=== PATIENT | female | born 1970 | race Caucasian/White ===

== ENCOUNTER 2017-03-13 11:22 | Observation (INO) | payer BC ==
[2017-03-13] MEDS ORDERED: ONDANSETRON 4 MG/2 ML VIAL IVP STA (11:59)
[2017-03-13] MEDS ORDERED: SODIUM CHLORIDE 0.9% 1,000 ML IV STA ×2 (11:59)
[2017-03-13] MEDS ORDERED: HYDROmorphone 1 MG/ML 1 ML SYRINGE IVP STA ×2 (11:59→13:38)
--- NOTE | 2017-03-13 12:01 | ED ---
General Adult HPI <Dex Chawla - Last Filed: 03/13/17 13:41> - General Source: patient, RN notes reviewed Mode of arrival: ambulatory Limitations: no limitations <Arley Workman - Last Filed: 03/13/17 13:44> - General Chief complaint: Abdominal Pain Stated complaint: abdominal pain LRQ Time Seen by Provider: 03/13/17 11:37 - History of Present Illness Initial comments: Patient is a 46-year-old female who presents emergency room today with chief complaint of abdominal pain times one day. Does admit that pain started yesterday. States is located in the right lower quadrant. Describes it as sharp. Currently rates it a 9/10. Does admit some pain that radiates around to the back. Patient does admit some nausea and vomiting. States she had an episode of diarrhea 2 days ago. Denies any other complaints or symptoms. She never had some symptoms in the past. Patient denies any recent fever, chills, shortness of breath, chest pain, numbness or tingling, dysuria or hematuria, constipation, headaches or visual changes, or any other complaints. (Arley Workman) - Related Data Home Medications Medication Instructions Recorded Confirmed Acetaminophen [Tylenol] 325 mg PO Q4H PRN 03/13/17 03/13/17 Atorvastatin Calcium [Lipitor] 20 mg PO HS 03/13/17 03/13/17 Fluticasone Nasal [place] [Flonase 1 spray EA NOSTRIL BID 03/13/17 03/13/17 Nasal [place]] Levothyroxine Sodium [Synthroid] 88 mcg PO DAILY 03/13/17 03/13/17 Montelukast [Singulair] 10 mg PO DAILY 03/13/17 03/13/17 Oxybutynin Xl [Ditropan Xl] 5 mg PO HS 03/13/17 03/13/17 Topiramate [Topamax] 50 mg PO HS 03/13/17 03/13/17 buPROPion HCL [Wellbutrin XL] 150 mg PO BID 03/13/17 03/13/17 Allergies Allergy/AdvReac Type Severity Reaction Status Date / Time No Known Allergies Allergy Verified 03/13/17 12:01 Review of Systems ROS Other: All systems not noted in ROS Statement are negative. <Dex Chawla - Last Filed: 03/13/17 13:41> ROS Other: All systems not noted in ROS Statement are negative. <WorkmanArley - Last Filed: 03/13/17 13:44> ROS Statement: Those systems with pertinent positive or pertinent negative responses have been documented in the HPI. Past Medical History Past Medical History: Hyperlipidemia, Thyroid Disorder Additional Past Medical History / Comment(s): migraines History of Any Multi-Drug Resistant Organisms: None Reported Past Surgical History: Cholecystectomy Past Psychological History: Anxiety Smoking Status: Never smoker Past Alcohol Use History: None Reported Past Drug Use History: None Reported <Arley Workman - Last Filed: 03/13/17 13:44> General Exam <Dex Chawla - Last Filed: 03/13/17 13:41> Limitations: no limitations <JiArley - Last Filed: 03/13/17 13:44> - General Exam Comments Initial Comments: General: The patient is awake and alert, in no distress, and does not appear acutely ill. Eye: Pupils are equal, round and reactive to light, extra-ocular movements are intact. No nystagmus. There is normal conjunctiva bilaterally. No signs of icterus. Ears, nose, mouth and throat: There are moist mucous membranes and no oral lesions. Neck: The neck is supple, there is no tenderness or JVD. Cardiovascular: There is a regular rate and rhythm. No murmur, rub or gallop is appreciated. Respiratory: Lungs are clear to auscultation, respirations are non-labored, breath sounds are equal. No wheezes, stridor, rales, or rhonchi. Gastrointestinal: Normal appearance abdomen. Normal bowel sounds. Abdomen soft on palpation. Patient does have tenderness right lower quadrant. Mild right-sided CVA tenderness. Musculoskeletal: Normal ROM, no tenderness. Strength 5/5. Sensation intact. Pulses equal bilaterally 2+. Neurological: A&O x 3. CN II-XII intact, There are no obvious motor or sensory deficits. Coordination appears grossly intact. Speech is normal. Skin: Skin is warm and dry and no rashes or lesions are noted. Psychiatric: Cooperative, appropriate mood & affect, normal judgment. (Arley Workman) Course <Dex Chawla - Last Filed: 03/13/17 13:41> <Arley Workman - Last Filed: 03/13/17 13:44> Vital Signs 03/13/17 11:23 Temperature 97.4 F L Pulse Rate 88 Respiratory 16 Rate Blood Pressure 120/74 O2 Sat by Pulse 99 Oximetry - Reevaluation(s) Reevaluation #1: 03/13/17 13:42 I did personally do a [id number] evaluation the patient did discuss findings with her . Patient does demonstrate tenderness palpation over McBurney' s point. CAT scan does show evidence of appendicitis. We did discuss options patient will be seen by the trauma surgeon on-call Dr. Bullock who will see the patient and take her to surgery. (Dex Chawla) Medical Decision Making - Lab Data Result diagrams: 03/13/17 11:45 03/13/17 11:45 <Dex Chawla - Last Filed: 03/13/17 13:41> - Lab Data Result diagrams: 03/13/17 11:45 03/13/17 11:45 <Arley Workman - Last Filed: 03/13/17 13:44> - Lab Data Lab Results 03/13/17 03/13/17 03/13/17 Range/Units 11:45 11:45 11:45 WBC 11.1 H (3.8-10.6) k/uL RBC 4.76 (3.80-5.40) m/uL Hgb 14.8 (11.4-16.0) gm/dL Hct 42.7 (34.0-46.0) % MCV 89.7 (80.0-100.0) fL MCH 31.0 (25.0-35.0) pg MCHC 34.6 (31.0-37.0) g/dL RDW 12.2 (11.5-15.5) % Plt Count 366 (150-450) k/uL Neutrophils % 67 % Lymphocytes % 23 % Monocytes % 5 % Eosinophils % 1 % Basophils % 1 % Neutrophils # 7.5 (1.3-7.7) k/uL Lymphocytes # 2.5 (1.0-4.8) k/uL Monocytes # 0.6 (0-1.0) k/uL Eosinophils # 0.2 (0-0.7) k/uL Basophils # 0.1 (0-0.2) k/uL Sodium 140 (137-145) mmol/L Potassium 4.1 (3.5-5.1) mmol/L Chloride 107 (98-107) mmol/L Carbon Dioxide 23 (22-30) mmol/L Anion Gap 10 mmol/L BUN 10 (7-17) mg/dL Creatinine 0.94 (0.52-1.04) mg/dL Est GFR (MDRD) Af Amer >60 (>60 ml/min/1.73 sqM) Est GFR (MDRD) Non-Af >60 (>60 ml/min/1.73 sqM) Glucose 95 (74-99) mg/dL Plasma Lactic Acid [place] 1.1 (0.7-2.0) mmol/L Calcium 9.7 (8.4-10.2) mg/dL Total Bilirubin 0.8 (0.2-1.3) mg/dL AST 20 (14-36) U/L ALT 24 (9-52) U/L Alkaline Phosphatase 64 (38-126) U/L Total Protein 7.3 (6.3-8.2) g/dL Albumin 4.3 (3.5-5.0) g/dL Amylase 50 (30-110) U/L Lipase 65 (23-300) U/L Urine Color Urine Appearance (Clear) Urine pH (5.0-8.0) Ur Specific [place] (1.001-1.035) Urine Protein (Negative) Urine Glucose (UA) (Negative) Urine Ketones (Negative) Urine Blood (Negative) Urine Nitrite (Negative) Urine Bilirubin (Negative) Urine Urobilinogen (<2.0) mg/dL Ur Leukocyte Esterase (Negative) Urine RBC (0-5) /hpf Urine WBC (0-5) /hpf Ur Squamous Epith Cells (0-4) /hpf Urine Bacteria (None) /hpf Urine Mucus (None) /hpf Urine HCG, Qual (Not Detectd) 03/13/17 03/13/17 Range/Units 11:45 11:45 WBC (3.8-10.6) k/uL RBC (3.80-5.40) m/uL Hgb (11.4-16.0) gm/dL Hct (34.0-46.0) % MCV (80.0-100.0) fL MCH (25.0-35.0) pg MCHC (31.0-37.0) g/dL RDW (11.5-15.5) % Plt Count (150-450) k/uL Neutrophils % % Lymphocytes % % Monocytes % % Eosinophils % % Basophils % % Neutrophils # (1.3-7.7) k/uL Lymphocytes # (1.0-4.8) k/uL Monocytes # (0-1.0) k/uL Eosinophils # (0-0.7) k/uL Basophils # (0-0.2) k/uL Sodium (137-145) mmol/L Potassium (3.5-5.1) mmol/L Chloride (98-107) mmol/L Carbon Dioxide (22-30) mmol/L Anion Gap mmol/L BUN (7-17) mg/dL Creatinine (0.52-1.04) mg/dL Est GFR (MDRD) Af Amer (>60 ml/min/1.73 sqM) Est GFR (MDRD) Non-Af (>60 ml/min/1.73 sqM) Glucose (74-99) mg/dL Plasma Lactic Acid [place] (0.7-2.0) mmol/L Calcium (8.4-10.2) mg/dL Total Bilirubin (0.2-1.3) mg/dL AST (14-36) U/L ALT (9-52) U/L Alkaline Phosphatase (38-126) U/L Total Protein (6.3-8.2) g/dL Albumin (3.5-5.0) g/dL Amylase (30-110) U/L Lipase (23-300) U/L Urine Color Yellow Urine Appearance Cloudy H (Clear) Urine pH 5.5 (5.0-8.0) Ur Specific [place] 1.013 (1.001-1.035) Urine Protein Negative (Negative) Urine Glucose (UA) Negative (Negative) Urine Ketones Negative (Negative) Urine Blood Trace H (Negative) Urine Nitrite Negative (Negative) Urine Bilirubin Negative (Negative) Urine Urobilinogen <2.0 (<2.0) mg/dL Ur Leukocyte Esterase Moderate H (Negative) Urine RBC 1 (0-5) /hpf Urine WBC 14 H (0-5) /hpf Ur Squamous Epith Cells 20 H (0-4) /hpf Urine Bacteria Occasional H (None) /hpf Urine Mucus Rare H (None) /hpf Urine HCG, Qual Not Detected (Not Detectd) Disposition <D[place],Dex - Last Filed: 03/13/17 13:41> Time of Disposition: 13:43 <Arley Workman - Last Filed: 03/13/17 13:44> Clinical Impression: Acute appendicitis Disposition: ADMITTED IP TO THIS HOSP Condition: Stable
[2017-03-13 12:18] LABS: Basophils # (A) 0.1 k/uL (0-0.2); Basophils % (A) 1 %; CH 32.4; CHCM 36.3; Eosinophils # (A) 0.2 k/uL (0-0.7); Eosinophils % (A) 1 %; HCT 42.7 % (34.0-46.0); HDW 2.59; HGB 14.8 gm/dL (11.4-16.0); Luc # (Auto) 0.27; Luc % (Auto) 2; Lymphocytes # (A) 2.5 k/uL (1.0-4.8); Lymphocytes % (A) 23 %; MCHC 34.6 g/dL (31.0-37.0); MCV 89.7 fL (80.0-100.0); Mean Platelet Volume 6.3; Monocytes # (A) 0.6 k/uL (0-1.0); Monocytes % (A) 5 %; Neutrophils # (A) 7.5 k/uL (1.3-7.7); Neutrophils % (A) 67 %; RBC 4.76 m/uL (3.80-5.40); RDW 12.2 % (11.5-15.5); WBC 11.1 k/uL (3.8-10.6); WBC (Perox) 10.68
[2017-03-13 12:28] LABS: Appearance,Urine Cloudy (Clear); Bacteria,Urine Occasional /hpf; Bilirubin,Urine Negative (Negative); Glucose,Urine (UA) Negative (Negative); Ketones,Urine Negative (Negative); Leukocyte Esterase,Urine Moderate (Negative); Mucus,Urine Rare /hpf; Nitrite,Urine Negative (Negative); PH, Urine 5.5 (5.0-8.0); Particle Count 6997; Protein,Urine Negative (Negative); RBC,Urine 1 /hpf (0-5); Specific Gravity,Urine 1.013 (1.001-1.035); Squamous Epithelial Cell,Urine 20 /hpf (0-4); UA Billing (MACRO vs. MICRO) MICRO; Urobilinogen,Urine <2.0 mg/dL (<2.0); WBC,Urine 14 /hpf (0-5)
[2017-03-13 12:32] LABS: ALT 24 U/L (9-52); AST 20 U/L (14-36); Alkaline Phosphatase 64 U/L (38-126); Amylase 50 U/L (30-110); Anion Gap 10 mmol/L; Blood Urea Nitrogen 10 mg/dL (7-17); Calcium 9.7 mg/dL (8.4-10.2); Carbon Dioxide 23 mmol/L (22-30); Chloride 107 mmol/L (98-107); Glucose 95 mg/dL (74-99); Non-African American GFR(MDRD) >60 (>60 ml/min/1.73 sqM); Potassium 4.1 mmol/L (3.5-5.1); Sodium 140 mmol/L (137-145); Total Bilirubin 0.8 mg/dL (0.2-1.3); Total Protein 7.3 g/dL (6.3-8.2)
--- NOTE | 2017-03-13 12:40 | XR ---
Abdomen HISTORY: Right lower quadrant pain, vomiting Frontal view of the abdomen on 2 images No comparisons Surgical clips are present in the right upper quadrant. Lung bases are clear. There is no bowel obstr uction or pneumoperitoneum. Indeterminate calcification measuring 2 mm present in the right hemipelvi s. There are some air-fluid levels without bowel distention. IMPRESSION: Correlate for enteritis or ileus. Additional findings above.
[2017-03-13] MEDS ORDERED: RX INFO: IV CONTRAST WAS GIVEN 1 EACH MISC MISCELLANE PRN (12:41)
--- NOTE | 2017-03-13 13:13 | CT ---
EXAMINATION TYPE: CT abdomen pelvis w con DATE OF EXAM: 03/13/2017 1:05 PM COMPARISON: Abdomen same date HISTORY: Umbilical pain, radiating to the Rt with nausea and vomiting CT DLP: 1241 mGycm Automated exposure control for dose reduction was used. TECHNIQUE: Helical acquisition of images from the lung bases through the pelvis have been completed. CONTRAST: Performed without Oral Contrast and with IV Contrast, patient injected with 100 mL of Omnipaque 300. FINDINGS: LUNG BASES: Dependent atelectatic changes are present bilaterally, no pleural or pericardial effusion . AORTA: No significant abnormality is appreciated. LIVER/GB: Patient is status post cholecystectomy. Small cystic focus in the inferior margin of the ri ght liver measuring only 1 cm is likely benign. There are some prominent intrahepatic biliary ducts. PANCREAS: No significant abnormality is seen. SPLEEN: No significant abnormality is seen. ADRENALS: No significant abnormality is seen. KIDNEYS: Left kidney shows an exophytic cyst present at the midpole measuring 6 cm. No evident hydron ephrosis or renal calcifications. No ureteral calcification. REPRODUCTIVE ORGANS: Probable right ovarian cyst measuring 18 mm. Uterus and left ovary unremarkable. BOWEL: The appendix shows wall thickening and measures approximately 11 to 12 mm in diameter, there is periappendiceal fluid density, inflammatory change FREE AIR: No Free Air visible. ASCITES: None visible. PELVIC ADENOPATHY: None visualized. RETROPERITONEAL ADENOPATHY: No Retroperitoneal Adenopathy visible. URINARY BLADDER: No significant abnormality is seen. OSSEOUS STRUCTURES: No significant abnormality is seen. IMPRESSION: FINDINGS COMPATIBLE WITH APPENDICITIS. POSTOP CHANGES.
[2017-03-13] MEDS ORDERED: SODIUM CHLORIDE 0.9% 1,000 ML IV ONE (13:41)
[2017-03-13] MEDS ORDERED: ONDANSETRON 4 MG/2 ML VIAL IVP PRN (13:41)
[2017-03-13] MEDS ORDERED: NALOXONE 0.4 MG/ML 1 ML VIAL IV PRN ×2 (13:41→16:15)
[2017-03-13] MEDS ORDERED: IV FLUID CONTINUATION 400 ML IV ONE (14:19)
[2017-03-13] MEDS ORDERED: BUPIVACAIN-EPI 0.25%-1:200,000 30 ML VIAL SQ ONE (14:27)
[2017-03-13] MEDS ORDERED: MIDAZOLAM 2 MG/2 ML VIAL IV PRN (14:39)
[2017-03-13] MEDS ORDERED: HYDROmorphone 1 MG/ML 1 ML SYRINGE IVP PRN ×2 (14:39→16:15)
[2017-03-13] MEDS ORDERED: SCOPOLAMINE 1.5MG/72HR PATCH TRANSDERM STA (14:42)
[2017-03-13] MEDS ORDERED: DEXAMETHASONE SOD PHOSPHATE 10 MG/ML 1 ML VIAL IV ONE (14:42)
[2017-03-13] MEDS ORDERED: HEPARIN SODIUM,PORCINE 5,000 UNIT/ML 1 ML VIAL SQ STA (14:45)
[2017-03-13] MEDS ORDERED: HEPARIN SODIUM,PORCINE 5,000 UNIT/ML 1 ML VIAL SQ ONE (14:46)
[2017-03-13] MEDS ORDERED: ONDANSETRON 4 MG/2 ML VIAL IVP ONE (14:47)
--- NOTE | 2017-03-13 14:54 | P.GSHP ---
History of Present Illness H&P Date: 03/13/17 Chief Complaint: Right lower quadrant pain A 46-year-old female who sees Dr. Ese Krause is an outpatient. Patient presented to the emergency room with complaints of right lower quadrant pain for 8 hours. Patient awake CAT scan was found have evidence of appendicitis. - Constitutional Constitutional: Reports as per HPI Past Medical History Past Medical History: Hyperlipidemia, Thyroid Disorder Additional Past Medical History / Comment(s): migraines History of Any Multi-Drug Resistant Organisms: None Reported Past Surgical History: Cholecystectomy Past Psychological History: Anxiety Smoking Status: Never smoker Past Alcohol Use History: None Reported Past Drug Use History: None Reported Medications and Allergies Home Medications Medication Instructions Recorded Confirmed Type Acetaminophen [Tylenol] 325 mg PO Q4H PRN 03/13/17 03/13/17 History Atorvastatin Calcium [Lipitor] 20 mg PO HS 03/13/17 03/13/17 History Fluticasone Nasal [place] [Flonase 1 spray EA NOSTRIL BID 03/13/17 03/13/17 History Nasal [place]] Levothyroxine Sodium [Synthroid] 88 mcg PO DAILY 03/13/17 03/13/17 History Montelukast [Singulair] 10 mg PO DAILY 03/13/17 03/13/17 History Oxybutynin Xl [Ditropan Xl] 5 mg PO HS 03/13/17 03/13/17 History Topiramate [Topamax] 50 mg PO HS 03/13/17 03/13/17 History buPROPion HCL [Wellbutrin XL] 150 mg PO BID 03/13/17 03/13/17 History Allergies Allergy/AdvReac Type Severity Reaction Status Date / Time No Known Allergies Allergy Verified 03/13/17 12:01 Surgical - Exam Vital Signs Temp Pulse Resp BP Pulse Ox 97.4 F L 88 16 120/74 99 03/13/17 11:23 03/13/17 11:23 03/13/17 11:23 03/13/17 11:23 03/13/17 11:23 - General well developed, no distress - Eyes PERRL - ENT normal pinna - Neck no masses - Respiratory normal expansion - Cardiovascular Rhythm: regular - Abdomen Tenderness at McBurney's point Abdomen: soft Results - Labs 03/13/17 11:45 03/13/17 11:45 - Imaging CT scan - abdomen: report reviewed (Evidence of appendicitis) Assessment and Plan Plan: Appendicitis. We'll perform laparoscopic appendectomy
[2017-03-13] MEDS ORDERED: fentaNYL (PF) 50 MCG/ML 2 ML AMP ONE (15:03)
[2017-03-13] MEDS ORDERED: NEOSTIGMINE 1 MG/ML 10 ML VIAL ONE (15:03)
[2017-03-13] MEDS ORDERED: SODIUM CHLORIDE 0.9% 50 ML with ceFAZolin 2,000 MG IV ONE ×2 (15:03)
[2017-03-13] MEDS ORDERED: GLYCOPYRROLATE 0.2 MG/ML 2 ML VIAL ONE (15:03)
[2017-03-13] MEDS ORDERED: LIDOCAINE 1% INJ 10MG/ML (20 ML MDV) ONE (15:03)
[2017-03-13] MEDS ORDERED: MIDAZOLAM 2 MG/2 ML VIAL ONE (15:03)
[2017-03-13] MEDS ORDERED: SUCCINYLCHOLINE CHLORIDE 100 MG/5 ML SYR IV ONE (15:03)
[2017-03-13] MEDS ORDERED: PROPOFOL 10 MG/ML 20 ML VIAL IV ONE (15:03)
[2017-03-13] MEDS ORDERED: ROCURONIUM BROMIDE 10 MG/ML 10 ML VIAL IV ONE (15:03)
[2017-03-13] MEDS: MEPERIDINE 50 MG/ML SYRINGE IVP ONE ×4 (15:50→16:26)
--- NOTE | 2017-03-13 16:14 | P.OP ---
Date of Procedure: 03/13/17 Preoperative Diagnosis: Acute appendicitis Postoperative Diagnosis: Acute appendicitis Procedure(s) Performed: Laparoscopic appendectomy Anesthesia: TRI Surgeon: Michael Bullock Estimated Blood Loss (ml): 5 Pathology: other (Appendix) Condition: stable Disposition: PACU Description of Procedure: HarThe patient's placed on the operating table in the supine position. The patient received general anesthesia. The abdomen was prepped and draped in the usual sterile fashion. The skin was anesthetized 1% local Xylocaine at the trocar sites. Using an 11 blade the skin was incised at the umbilicus. The umbilicus was grasped with a [place] clamp and then a Veress needle was placed into the peritoneal cavity. Position of the Veress needle was confirmed with positive drop test. After adequate insufflation a 5 mm trocar was placed into the peritoneal cavity. The abdomen was further insufflated. And then the laparoscope was placed in the peritoneal cavity. Next a 5 mm trocar was placed in the midline suprapubic position. And then a 10 mm trocar was placed in the midline epigastric position. The patient was rotated with the right side up and in Trendelenburg. The appendix was visualized. The appendix appeared to be inflamed. The appendix was grasped and then using the Harmonic scissors the mesoappendix was divided. A PDS Endoloop was then placed around the base of the appendix. And then the appendix was divided using Harmonic scissors. The appendix was placed into an Endo Catch and brought out through the 10 mm trocar site. The abdomen was irrigated. There is no bleeding seen. The trochars withdrawn. The skin was closed interrupted 3-0 Monocryl suture. Dermabond dressing was applied. Patient was sent to recovery room in stable condition.
[2017-03-13] MEDS ORDERED: ACETAMINOPHEN TAB 325 MG TAB PO PRN (16:15)
[2017-03-13] MEDS ORDERED: ACETAMINOPHEN IV (For NPO) 1,000 MG in EMPTY BAG 1 BAG IVPB ONE (16:15)
[2017-03-13] MEDS ORDERED: HYDROcodone/APAP 5-325MG 1 EACH TAB PO PRN (16:15)
[2017-03-13] MEDS: LACTATED RINGERS 1,000 ML IV SCH ×2 (16:18→16:24)
[2017-03-13] MEDS: KETOROLAC 30 MG/ML 1 ML VIAL IVP SCH (17:03)
[2017-03-13 17:21] VITALS: BMI 26.4
[2017-03-13] MEDS: LACTATED RINGERS 1,000 ML IV ONE ×2 (17:55→20:21)
[2017-03-13] MEDS: HYDROmorphone 1 MG/ML 1 ML SYRINGE IV PRN ×2 (19:21→22:28)
[2017-03-13] MEDS: DOCUSATE 100 MG CAP PO SCH (20:17)
[2017-03-14] MEDS: HYDROmorphone 1 MG/ML 1 ML SYRINGE IV PRN ×3 (01:32→09:20)
[2017-03-14] MEDS: KETOROLAC 30 MG/ML 1 ML VIAL IVP SCH ×5 (01:57→23:25)
[2017-03-14] MEDS: DOCUSATE 100 MG CAP PO SCH ×2 (08:27→22:17)
[2017-03-14 08:39] VITALS: RESP 20
[2017-03-14] MEDS: MONTELUKAST 10 MG TAB PO SCH (09:27)
[2017-03-14] MEDS: LEVOTHYROXINE 88 MCG TAB PO SCH (09:27)
[2017-03-14] MEDS: buPROPion XL 150 MG TAB.ER.24H PO SCH ×2 (09:27→22:17)
[2017-03-14] MEDS: FLUTICASONE 50MCG/SPRAY NASAL 16GM EA NOSTRIL SCH ×2 (09:28→22:16)
[2017-03-14] MEDS ORDERED: ONDANSETRON 4 MG/2 ML VIAL IVP PRN (10:30)
--- NOTE | 2017-03-14 11:23 | P.PN ---
Subjective Principal diagnosis: Acute appendicitis Patient is a 46-year-old female admitted with acute appendicitis status post laparoscopic appendectomy. Patient is postop day #1. Patient complains of nausea with vomiting. Denies chills, fevers, shortness of breath, or chest pain. Incisional pain controlled with current pain regimen. Patient is urinating without difficulty. Patient denies flatus or bowel movements. Afebrile. WBC 11.1. Hemoglobin stable at 14.8. Objective - Vital Signs Vital signs: Vital Signs Temp 98.6 F 03/14/17 08:00 Pulse 78 03/14/17 08:00 Resp 20 03/14/17 08:00 BP 92/47 03/14/17 08:00 Pulse Ox 93 L 03/14/17 08:00 Intake & Output 03/13/17 03/14/17 03/14/17 18:59 06:59 18:59 Intake Total 950 Output Total 3 1050 Balance 947 -1050 Weight 69.853 kg Intake: IV 950 Output: Urine 1050 Estimated Blood Loss 3 Other: # Voids 2 - Exam GENERAL: Pt awake and alert, well-appearing, well-nourished, and in no acute distress. HEAD: Atraumatic, normocephalic. LUNGS: Breath sounds clear to auscultation bilaterally. No wheezes, rales, or rhonchi. HEART: Heart S1, S2, no S3 or S4. Regular rate and rhythm. No murmurs, rubs or gallops. ABDOMEN: Soft, moderate incisional tenderness, nondistended, normoactive bowel sounds. No guarding, no rebound. Laparoscopic incisions dry and intact, no erythema and drainage. NEUROLOGICAL: Pt oriented x 3. - Labs CBC & Chem 7: 03/13/17 11:45 03/13/17 11:45 Assessment and Plan Plan: Impression: 1. Acute appendicitis status post laparoscopic appendectomy. 2. Postoperative nausea and vomiting. 3. Leukocytosis, suspect reactive. Plan: Continue to monitor patient. Continue supportive treatment and pain management. Increase ambulation as tolerated. Continue GI and DVT prophylaxis. Continue incentive spirometry 10 times while awake. Advance diet as tolerated. Continue to follow the medical team. Anticipate discharge in next 24 hours. The above impression and plan have been discussed and directed by Dr. Bullock. Birgitte WINCH OPERATOR-C acting as scribe for Dr. Bullock.
[2017-03-14] MEDS ORDERED: PROCHLORPERAZINE 10 MG TAB PO PRN (17:42)
--- NOTE | 2017-03-14 17:49 | P.HPIM ---
History of Present Illness H&P Date: 03/14/17 Patient is a 46-year-old female who presented to [facility] emergency room with a chief complaint of right lower quadrant abdominal pain that started 8 hours prior to presentation, she was evaluated in the emergency room she had a computed tomography scan of the abdomen and pelvis that was positive for acute appendicitis she was taken to oral R by Dr. Bullock. Medical consultation was requested for management while hospitalized. Past Medical History Past Medical History: Hyperlipidemia, Thyroid Disorder Additional Past Medical History / Comment(s): migraines History of Any Multi-Drug Resistant Organisms: None Reported Past Surgical History: Cholecystectomy, Uterine Ablation Additional Past Surgical History / Comment(s): 2013 ablation Past Anesthesia/Blood Transfusion Reactions: No Reported Reaction Past Psychological History: Anxiety, Depression Additional Psychological History / Comment(s): Dr Ese Krause manages depression Smoking Status: Never smoker Past Alcohol Use History: None Reported Past Drug Use History: None Reported - Past Family History Mother Family Medical History: CVA/TIA, Diabetes Mellitus Additional Family Medical History / Comment(s): parkinsons Medications and Allergies Home Medications Medication Instructions Recorded Confirmed Type Acetaminophen [Tylenol] 325 mg PO Q4H PRN 03/13/17 03/13/17 History Atorvastatin Calcium [Lipitor] 20 mg PO HS 03/13/17 03/13/17 History Fluticasone Nasal [place] [Flonase 1 spray EA NOSTRIL BID 03/13/17 03/13/17 History Nasal [place]] Levothyroxine Sodium [Synthroid] 88 mcg PO DAILY 03/13/17 03/13/17 History Montelukast [Singulair] 10 mg PO DAILY 03/13/17 03/13/17 History Oxybutynin Xl [Ditropan Xl] 5 mg PO HS 03/13/17 03/13/17 History Topiramate [Topamax] 50 mg PO HS 03/13/17 03/13/17 History buPROPion HCL [Wellbutrin XL] 150 mg PO BID 03/13/17 03/13/17 History Allergies Allergy/AdvReac Type Severity Reaction Status Date / Time No Known Allergies Allergy Verified 03/13/17 17:26 Physical Exam Vitals: Vital Signs Temp Pulse Pulse Resp BP BP Pulse Ox 03/14/17 11:41 98.5 F 70 20 93/55 90 L 03/14/17 08:00 98.6 F 78 20 92/47 91/53 93 L 03/14/17 04:17 97.6 F 72 16 110/60 96 03/13/17 23:00 98.1 F 75 16 94/59 95 03/13/17 19:30 80 18 103/65 95 03/13/17 18:30 93 18 107/66 94 L 03/13/17 18:00 88 18 111/68 99 Intake and Output 03/14/17 03/14/17 03/14/17 06:59 14:59 22:59 Output Total 200 Balance -200 Output: Emesis 200 Other: # Voids 2 In general patient is alert and oriented 3 in no apparent distress HEENT head normocephalic and atraumatic Neck is supple no JVD no goiter no lymphadenopathy Chest exam reveals a few scattered crackles no wheezing cardiac exam reveals regular heart sounds S1 and S2 no gallops no murmurs Abdomen is soft with mild diffuse tenderness no organomegaly, with hyperactive bowel sounds Extremity exam reveals no edema no cyanosis or clubbing Results CBC & Chem 7: 03/13/17 11:45 03/13/17 11:45 Thrombosis Risk Factor Assmnt - Choose All That Apply Each Factor Represents 1 point: Age 41-60 years, Obesity (BMI >25) Each Risk Factor Represents 2 Points: Laparoscopic surgery Thrombosis Risk Factor Assessment Total Risk Factor Score: 4 Thrombosis Risk Factor Assessment Level: Moderate Risk Assessment and Plan Plan: #1 acute appendicitis status post laparoscopic appendectomy was to operative day #1 #2 urinary tract infection #3 leukocytosis #4 underlying history of hypothyroidism At this time will add Compazine continue with Zofran Will add Zosyn Will monitor progress closely
[2017-03-14] MEDS: LACTATED RINGERS 1,000 ML IV ONE (18:30)
[2017-03-14] MEDS: PIPERACILLIN-TAZOBACTAM 3.375 GM in DEXTROSE/WATER 1 50ML.BAG IVPB SCH ×2 (18:30→23:26)
[2017-03-14 18:48] LABS: Basophils % (A) 0 %; CH 32.2; CHCM 35.5; Eosinophils % (A) 0 %; HDW 2.56; HGB 12.3 gm/dL (11.4-16.0); Luc # (Auto) 0.26; Luc % (Auto) 2; Lymphocytes # (A) 2.3 k/uL (1.0-4.8); Lymphocytes % (A) 19 %; MCH 32.1 pg (25.0-35.0); MCHC 35.2 g/dL (31.0-37.0); MCV 91.3 fL (80.0-100.0); Mean Platelet Volume 6.6; Monocytes # (A) 0.7 k/uL (0-1.0); Monocytes % (A) 6 %; Neutrophils # (A) 8.8 k/uL (1.3-7.7); Neutrophils % (A) 73 %; RBC 3.83 m/uL (3.80-5.40); RDW 12.2 % (11.5-15.5); WBC 12.1 k/uL (3.8-10.6); WBC (Perox) 11.72
[2017-03-14] MEDS ORDERED: TOPIRAMATE 25 MG TAB PO SCH (21:00)
[2017-03-14] MEDS ORDERED: OXYBUTYNIN XL 5 MG TAB.ER.24 PO SCH (21:00)
[2017-03-14] MEDS ORDERED: ATORVASTATIN 20 MG TAB PO SCH (21:00)
[2017-03-15] MEDS: KETOROLAC 30 MG/ML 1 ML VIAL IVP SCH ×2 (05:55→13:00)
[2017-03-15] MEDS: LEVOTHYROXINE 88 MCG TAB PO SCH (05:56)
[2017-03-15] MEDS: LACTATED RINGERS 1,000 ML IV SCH ×2 (05:57→12:59)
[2017-03-15 06:48] LABS: Basophils % (A) 1 %; CH 31.8; CHCM 34.1; Eosinophils # (A) 0.1 k/uL (0-0.7); Eosinophils % (A) 1 %; HDW 2.41; HGB 11.1 gm/dL (11.4-16.0); Luc # (Auto) 0.21; Luc % (Auto) 3; Lymphocytes % (A) 28 %; MCH 31.5 pg (25.0-35.0); MCHC 33.7 g/dL (31.0-37.0); MCV 93.6 fL (80.0-100.0); Mean Platelet Volume 6.3; Monocytes # (A) 0.4 k/uL (0-1.0); Monocytes % (A) 5 %; Neutrophils # (A) 4.5 k/uL (1.3-7.7); Neutrophils % (A) 62 %; RBC 3.53 m/uL (3.80-5.40); RDW 12.5 % (11.5-15.5); WBC 7.2 k/uL (3.8-10.6)
[2017-03-15 07:03] LABS: ALT 25 U/L (9-52); AST 13 U/L (14-36); Alkaline Phosphatase 41 U/L (38-126); Anion Gap 5 mmol/L; Blood Urea Nitrogen 9 mg/dL (7-17); Calcium 8.4 mg/dL (8.4-10.2); Carbon Dioxide 27 mmol/L (22-30); Chloride 109 mmol/L (98-107); Glucose 95 mg/dL (74-99); Non-African American GFR(MDRD) >60 (>60 ml/min/1.73 sqM); Sodium 141 mmol/L (137-145); Total Bilirubin 0.4 mg/dL (0.2-1.3); Total Protein 5.3 g/dL (6.3-8.2)
[2017-03-15] MEDS: PIPERACILLIN-TAZOBACTAM 3.375 GM in DEXTROSE/WATER 1 50ML.BAG IVPB SCH (08:44)
[2017-03-15] MEDS: FLUTICASONE 50MCG/SPRAY NASAL 16GM EA NOSTRIL SCH (08:46)
[2017-03-15] MEDS: DOCUSATE 100 MG CAP PO SCH (08:46)
[2017-03-15] MEDS: buPROPion XL 150 MG TAB.ER.24H PO SCH (08:47)
[2017-03-15] MEDS: MONTELUKAST 10 MG TAB PO SCH (08:47)
[2017-03-15 09:20] VITALS: TEMP 98.2
[2017-03-15 13:06] VITALS: BP 115/76; PULSE 74
--- NOTE | 2017-03-15 14:31 | P.PN ---
Subjective Principal diagnosis: Acute appendicitis Patient is a 46-year-old female admitted with acute appendicitis status post laparoscopic appendectomy. Patient is postop day #2. Patient is feeling better. Complains of mild nausea without vomiting. Denies shortness of breath or chest pain. Incisional pain controlled with current pain regimen. Passing flatus without bowel movements. Patient is urinating without difficulty. Tolerating full liquid diet. T-max last 24 hours 100.9 around 5 PM yesterday. No evidence of leukocytosis. Hemoglobin decreased to 11.1. Objective - Vital Signs Vital signs: Vital Signs Temp 98.2 F 03/15/17 12:25 Pulse 74 03/15/17 12:25 Resp 20 03/15/17 12:25 BP 115/76 03/15/17 12:25 Pulse Ox 96 03/15/17 12:25 Intake & Output 03/14/17 03/15/17 03/15/17 18:59 06:59 18:59 Intake Total 200 Output Total 440 Balance -440 200 Intake: Oral 200 Output: Emesis 440 Other: # Voids 1 1 - Exam GENERAL: Pt awake and alert, well-appearing, well-nourished, and in no acute distress. HEAD: Atraumatic, normocephalic. LUNGS: Breath sounds clear to auscultation bilaterally. No wheezes, rales, or rhonchi. HEART: Heart S1, S2, no S3 or S4. Regular rate and rhythm. No murmurs, rubs or gallops. ABDOMEN: Soft, mild incisional tenderness, nondistended, normoactive bowel sounds. No guarding, no rebound. Laparoscopic incisions dry and intact, no erythema and drainage. NEUROLOGICAL: Pt oriented x 3. - Labs CBC & Chem 7: 03/15/17 06:25 03/15/17 06:25 Labs: Abnormal Lab Results - Last 24 Hours (Table) 03/14/17 03/15/17 03/15/17 Range/Units 18:26 06:25 06:25 WBC 12.1 H (3.8-10.6) k/uL RBC 3.53 L (3.80-5.40) m/uL Hgb 11.1 L (11.4-16.0) gm/dL Hct 33.0 L (34.0-46.0) % Neutrophils # 8.8 H (1.3-7.7) k/uL Chloride 109 H (98-107) mmol/L AST 13 L (14-36) U/L Total Protein 5.3 L (6.3-8.2) g/dL Albumin 2.9 L (3.5-5.0) g/dL Assessment and Plan Plan: Impression: 1. Acute appendicitis status post laparoscopic appendectomy. 2. Anemia, postoperative, suspect dilutional. 3. Possible urinary tract infection. Plan: Continue to monitor patient. Continue supportive treatment and pain management. Continue antibiotics. Increase ambulation as tolerated. Continue GI and DVT prophylaxis. Continue incentive spirometry 10 times while awake. Advance diet as tolerated. Continue to follow with medical team. Possible discharge this afternoon. The above impression and plan have been discussed and directed by Dr. Bullock. Maria MACHUCA acting as scribe for Dr. Bullock.
--- NOTE | 2017-04-21 13:06 | P.DS ---
Providers Date of admission: 03/13/17 14:06 Expected date of discharge: 03/15/17 Attending physician: Michael Bullock Consults: 03/13/17 16:15 Consult Physician Routine Consulting Provider: Arden Santamraia Consult Reason/Comments: Medical management Do you want consulting provider notified?: Yes Primary care physician: Ese Krause Hospital Course: 46-year-old female who was admitted [facility] dull pain. She is worked up found have evidence of acute appendicitis. Patient went laparoscopic Appendectomy. Please see hospital chart for details. Procedures: Laparoscopic appendectomy Patient Condition at Discharge: Stable Plan - Discharge Summary New Discharge Prescriptions: New Docusate [Colace] 100 mg PO BID #20 capsule HYDROcodone/APAP 7.5-325MG [[place] 7.5-325] 1 tab PO Q6HR PRN #28 tab PRN Reason: Pain Continue Topiramate [Topamax] 50 mg PO HS Oxybutynin Xl [Ditropan XL] 5 mg PO HS Acetaminophen [Tylenol] 325 mg PO Q4H PRN PRN Reason: Pain buPROPion HCL [Wellbutrin XL] 150 mg PO BID Montelukast [Singulair] 10 mg PO DAILY Fluticasone Nasal Tinnie [Flonase Nasal Tinnie] 1 spray EA NOSTRIL BID Atorvastatin Calcium [Lipitor] 20 mg PO HS Levothyroxine Sodium [Synthroid] 88 mcg PO DAILY Discharge Medication List Acetaminophen [Tylenol] 325 mg PO Q4H PRN 03/13/17 [History] Atorvastatin Calcium [Lipitor] 20 mg PO HS 03/13/17 [History] Docusate [Colace] 100 mg PO BID #20 capsule 03/13/17 [Rx] Fluticasone Nasal Tinnie [Flonase Nasal [place]] 1 spray EA NOSTRIL BID 03/13/17 [ History] HYDROcodone/APAP 7.5-325MG [[place] 7.5-325] 1 tab PO Q6HR PRN #28 tab 03/13/17 [ Rx] Levothyroxine Sodium [Synthroid] 88 mcg PO DAILY 03/13/17 [History] Montelukast [Singulair] 10 mg PO DAILY 03/13/17 [History] Oxybutynin Xl [Ditropan XL] 5 mg PO HS 03/13/17 [History] Topiramate [Topamax] 50 mg PO HS 03/13/17 [History] buPROPion HCL [Wellbutrin XL] 150 mg PO BID 03/13/17 [History] Follow up Appointment(s)/Referral(s): Ese Krause DO [Primary Care Provider] - 1-2 days Michael Bullock MD [STAFF PHYSICIAN] - 03/21/17 12:30 pm Patient Instructions/Handouts: Laparoscopic Appendectomy (DC) Activity/Diet/Wound Care/Special Instructions: No heavy lifting, pushing, or pulling items greater than 10 pounds. Regular diet, as tolerated. stay on full liquids and light foods till feeling confident Shower daily, no soaking in bath tubs, pools, or hot tubs. No driving while taking pain medication. Notify surgeon with any signs or symptoms of infection,(fever, chills, redness or drainage from puncture sites.) increased pain, or not tolerating diet. or any concerns Continue to use Incentive Spirometery at home. Return to work when cleared by Dr Bullock after recheck Discharge Disposition: HOME SELF-CARE
== END 2017-03-15 17:03 | disposition home or self-care (01) ==
LOC: EC 11:22 → 6PED 14:06
PROVIDERS: ADMIT Surgery; ATTEND Surgery
DX: K35.80 Unspecified acute appendicitis (principal); N39.0 Urinary tract infection, site not specified; K91.89 Other postprocedural complications and disorders of digestive system; E03.9 Hypothyroidism, unspecified; E78.5 Hyperlipidemia, unspecified; F32.9 Major depressive disorder, single episode, unspecified; F41.9 Anxiety disorder, unspecified; D64.9 Anemia, unspecified; G43.909 Migraine, unspecified, not intractable, without status migrainosus; Z79.899 Other long term (current) drug therapy; Z79.51 Long term (current) use of inhaled steroids; Z90.49 Acquired absence of other specified parts of digestive tract; Z83.3 Family history of diabetes mellitus
CPT/HCPCS: 44970; 96361 ×4; 96365; 96366 ×3; 96367; 96375 ×2; 96376 ×3; 99285; 36415; 81025 ×2; 88304; 80053 ×2; 82150; 83605; 83690; 85025 ×3; 81001; 74000; 74177; G0378 ×3; J2250; J1644; J1100; J2710; J2175; J2405 ×2; J2001; J3010; J1885 ×3; J1170 ×2; J2543 ×2; Q9967; J0690; J0131; J0330; J2704

== ENCOUNTER 2017-05-07 19:50 | Emergency (ER) | payer BC ==
[2017-05-07] MEDS ORDERED: SODIUM CHLORIDE 0.9% 1,000 ML IV STA (20:50)
[2017-05-07] MEDS ORDERED: ONDANSETRON 4 MG/2 ML VIAL IVP STA (20:50)
--- NOTE | 2017-05-07 21:22 | ED ---
Abdominal Pain HPI - General Chief Complaint: Abdominal Pain Stated Complaint: poss kidney stone Time Seen by Provider: 05/07/17 20:50 Source: patient Mode of arrival: ambulatory Limitations: no limitations - History of Present Illness Initial Comments: 46-year-old female chief complaint of dysuria, right-sided flank pain and blood in her urine for the past 6 hours. Patient reports that she went to an urgent care was given a shot of Toradol before coming to the emergency department. She does feel chilled. Patient denies any nausea or vomiting. Denies any change in bowel movements. She does have a history of kidney stones but has not had one in several years. She did have her appendix removed a month ago by Dr. Almanza. She reports no palpitations after the surgery. Patient states that she recently got off a sailboat trip for the past 2 weeks and was coming home today. - Related Data Home Medications Medication Instructions Recorded Confirmed Levothyroxine Sodium [Synthroid] 88 mcg PO DAILY 03/13/17 05/07/17 Montelukast [Singulair] 10 mg PO DAILY 03/13/17 05/07/17 buPROPion HCL [Wellbutrin XL] 150 mg PO DAILY 03/13/17 05/07/17 Cholecalciferol [Vitamin D3] 1,000 unit PO DAILY 05/07/17 05/07/17 Cyanocobalamin (Vitamin B-12) 1,000 mcg PO DAILY 05/07/17 05/07/17 [Vitamin B-12] traMADol HCL [Ultram] 50 mg PO Q6H PRN 05/07/17 05/07/17 Previous Rx's Medication Instructions Recorded Ciprofloxacin HCl [Cipro] 500 mg PO Q12HR #14 tablet 05/07/17 Fluconazole [Diflucan] 150 mg PO ONCE #2 tab 05/07/17 HYDROcodone/APAP 10-325MG [[place] 1 tab PO Q6H PRN #20 tab 05/07/17 10-325] Ketorolac [Toradol] 10 mg PO Q6HR #20 tab 05/07/17 Tamsulosin [Flomax] 0.4 mg PO DAILY #7 cap 05/07/17 Allergies Allergy/AdvReac Type Severity Reaction Status Date / Time SKIN ON PEACHES AdvReac Rash/Hives Uncoded 05/07/17 21:07 Review of Systems ROS Statement: Those systems with pertinent positive or pertinent negative responses have been documented in the HPI. ROS Other: All systems not noted in ROS Statement are negative. Past Medical History Past Medical History: Hyperlipidemia, Thyroid Disorder Additional Past Medical History / Comment(s): migraines Kidney stones History of Any Multi-Drug Resistant Organisms: None Reported Past Surgical History: Appendectomy, Cholecystectomy, Uterine Ablation Additional Past Surgical History / Comment(s): 2013 ablation Past Anesthesia/Blood Transfusion Reactions: No Reported Reaction Past Psychological History: Anxiety, Depression Smoking Status: Never smoker Past Alcohol Use History: None Reported Past Drug Use History: None Reported - Past Family History Mother Family Medical History: CVA/TIA, Diabetes Mellitus Additional Family Medical History / Comment(s): parkinsons General Exam - General Exam Comments Initial Comments: 46-year-old female. No significant distress. Limitations: no limitations General appearance: alert, in no apparent distress Head exam: Present: atraumatic, normocephalic, normal inspection Eye exam: Present: normal appearance, PERRL, EOMI. Absent: scleral icterus, conjunctival injection, periorbital swelling ENT exam: Present: normal exam, mucous membranes moist Neck exam: Present: normal inspection. Absent: tenderness, meningismus, lymphadenopathy Respiratory exam: Present: normal lung sounds bilaterally. Absent: respiratory distress, wheezes, rales, rhonchi, stridor Cardiovascular Exam: Present: regular rate, normal rhythm, normal heart sounds. Absent: systolic murmur, diastolic murmur, rubs, gallop, clicks GI/Abdominal exam: Present: soft, normal bowel sounds. Absent: distended, tenderness, guarding, rebound, rigid Extremities exam: Present: normal inspection, full ROM, normal capillary refill. Absent: tenderness, pedal edema, joint swelling, calf tenderness Back exam: Present: normal inspection Neurological exam: Present: alert, oriented X3, CN II-XII intact Psychiatric exam: Present: normal affect, normal mood Skin exam: Present: warm, dry, intact, normal color. Absent: rash Course Vital Signs 05/07/17 05/07/17 20:08 22:29 Temperature 97.5 F L 97.3 F L Pulse Rate 91 Respiratory 18 Rate Blood Pressure 118/73 O2 Sat by Pulse 100 Oximetry Medical Decision Making - Lab Data Result diagrams: 05/07/17 21:12 05/07/17 21:12 Lab Results 05/07/17 05/07/17 05/07/17 Range/Units 21:12 21:12 21:12 WBC 17.1 H (3.8-10.6) k/uL RBC 4.26 (3.80-5.40) m/uL Hgb 13.5 (11.4-16.0) gm/dL Hct 38.3 (34.0-46.0) % MCV 89.9 (80.0-100.0) fL MCH 31.6 (25.0-35.0) pg MCHC 35.2 (31.0-37.0) g/dL RDW 12.7 (11.5-15.5) % Plt Count 334 (150-450) k/uL Neutrophils % 78 % Lymphocytes % 14 % Monocytes % 4 % Eosinophils % 2 % Basophils % 1 % Neutrophils # 13.3 H (1.3-7.7) k/uL Lymphocytes # 2.3 (1.0-4.8) k/uL Monocytes # 0.8 (0-1.0) k/uL Eosinophils # 0.3 (0-0.7) k/uL Basophils # 0.1 (0-0.2) k/uL Sodium 140 (137-145) mmol/L Potassium 4.0 (3.5-5.1) mmol/L Chloride 108 H (98-107) mmol/L Carbon Dioxide 20 L (22-30) mmol/L Anion Gap 12 mmol/L BUN 12 (7-17) mg/dL Creatinine 0.90 (0.52-1.04) mg/dL Est GFR (MDRD) Af Amer >60 (>60 ml/min/1.73 sqM) Est GFR (MDRD) Non-Af >60 (>60 ml/min/1.73 sqM) Glucose 96 (74-99) mg/dL Calcium 9.9 (8.4-10.2) mg/dL Total Bilirubin 0.6 (0.2-1.3) mg/dL AST 24 (14-36) U/L ALT 32 (9-52) U/L Alkaline Phosphatase 58 (38-126) U/L Total Protein 6.8 (6.3-8.2) g/dL Albumin 4.3 (3.5-5.0) g/dL Amylase 36 (30-110) U/L Lipase 67 (23-300) U/L Urine Color Red Urine Appearance Bloody H (Clear) Urine pH (5.0-8.0) Ur Specific [place] 1.018 (1.001-1.035) Urine Protein (Negative) Urine Glucose (UA) (Negative) Urine Ketones (Negative) Urine Blood (Negative) Urine Nitrite (Negative) Urine Bilirubin (Negative) Urine Urobilinogen (<2.0) mg/dL Ur Leukocyte Esterase (Negative) Urine RBC >182 H (0-5) /hpf Urine WBC >182 H (0-5) /hpf Urine Mucus Many H (None) /hpf Disposition Clinical Impression: Pyelonephritis, Flank pain Disposition: HOME SELF-CARE Condition: Good Instructions: Kidney Stones (ED), Flank Pain (ED) Additional Instructions: Patient advised to complete her prescriptions. Follow-up with her primary care provider on Monday or Monday. Return to the emergency department if any alarming signs or symptoms occur. Prescriptions: Ciprofloxacin HCl [Cipro] 500 mg PO Q12HR #14 tablet Fluconazole [Diflucan] 150 mg PO ONCE #2 tab HYDROcodone/APAP 10-325MG [[place] 10-325] 1 tab PO Q6H PRN #20 tab PRN Reason: Pain Ketorolac [Toradol] 10 mg PO Q6HR #20 tab Tamsulosin [Flomax] 0.4 mg PO DAILY #7 cap Referrals: Ese Krause DO [Primary Care Provider] - 1-2 days Time of Disposition: 23:13
--- NOTE | 2017-05-07 21:39 | XR ---
EXAMINATION TYPE: XR KUB DATE OF EXAM: 05/07/2017 COMPARISON: NONE HISTORY: Pain TECHNIQUE: Single supine KUB image of the abdomen is obtained FINDINGS: Small bowel demonstrates no evidence for dilatation or air fluid levels. Gas and fecal material is seen in non-distended colon. No convincing evidence for pneumoperitoneum. No unusual calcifications. The lung bases are clear. The osseous structures are intact. IMPRESSION: 1. Overall nonobstructive bowel gas pattern.
[2017-05-07 22:04] LABS: Basophils # (A) 0.1 k/uL (0-0.2); Basophils % (A) 1 %; CH 31.6; CHCM 35.3; Eosinophils # (A) 0.3 k/uL (0-0.7); Eosinophils % (A) 2 %; HCT 38.3 % (34.0-46.0); HDW 2.46; HGB 13.5 gm/dL (11.4-16.0); Luc # (Auto) 0.35; Luc % (Auto) 2; Lymphocytes # (A) 2.3 k/uL (1.0-4.8); Lymphocytes % (A) 14 %; MCH 31.6 pg (25.0-35.0); MCHC 35.2 g/dL (31.0-37.0); MCV 89.9 fL (80.0-100.0); Mean Platelet Volume 6.7; Monocytes # (A) 0.8 k/uL (0-1.0); Monocytes % (A) 4 %; Neutrophils # (A) 13.3 k/uL (1.3-7.7); Neutrophils % (A) 78 %; RBC 4.26 m/uL (3.80-5.40); RDW 12.7 % (11.5-15.5); WBC 17.1 k/uL (3.8-10.6); WBC (Perox) 17.17
--- NOTE | 2017-05-07 22:05 | CT ---
EXAMINATION TYPE: CT abdomen pelvis wo con DATE OF EXAM: 05/07/2017 COMPARISON: March 2017 HISTORY: Right sided flank pain with hematuria CT DLP: 327.9 mGycm Examination of the solid and hollow viscera is limited given the lack of contrast. FINDINGS: LUNG BASES: No evidence for nodule. No evidence for infiltrate. LIVER/GB: Cholecystectomy clips are in place. No space-occupying hepatic lesion. PANCREAS: No pancreatic mass identified. No inflammatory process seen. SPLEEN: No evidence for splenomegaly. No intrasplenic lesions seen. ADRENALS: No adrenal nodules identified. No evidence for thickening. KIDNEYS: Stable large left renal cyst. No nephrolithiasis. No hydronephrosis. Stable right hemipelvic phlebolith. BOWEL: Appendix has a normal appearance. No evidence of bowel obstruction. No inflammatory process. Lymph nodes: No evidence for adenopathy greater than 1 cm. Abdominal aorta: Atheromatous changes seen. No evidence for aneurysm. Genital organs: No significant abnormality. Other: No significant abnormality. IMPRESSION: 1. NO EVIDENCE FOR OBSTRUCTIVE UROPATHY. 2. LARGE LEFT RENAL CYST.
[2017-05-07 22:06] LABS: Appearance,Urine Bloody (Clear)
[2017-05-07 22:08] LABS: Specific Gravity,Urine 1.018 (1.001-1.035)
[2017-05-07 22:13] LABS: ALT 32 U/L (9-52); AST 24 U/L (14-36); Alkaline Phosphatase 58 U/L (38-126); Amylase 36 U/L (30-110); Anion Gap 12 mmol/L; Blood Urea Nitrogen 12 mg/dL (7-17); Calcium 9.9 mg/dL (8.4-10.2); Carbon Dioxide 20 mmol/L (22-30); Chloride 108 mmol/L (98-107); Glucose 96 mg/dL (74-99); Non-African American GFR(MDRD) >60 (>60 ml/min/1.73 sqM); Sodium 140 mmol/L (137-145); Total Bilirubin 0.6 mg/dL (0.2-1.3); Total Protein 6.8 g/dL (6.3-8.2)
[2017-05-07 22:14] LABS: Mucus,Urine Many /hpf; Particle Count 174160; RBC,Urine >182 /hpf (0-5); UA Billing (MACRO vs. MICRO) MICRO; WBC,Urine >182 /hpf (0-5)
[2017-05-07] MEDS ORDERED: HYDROmorphone 1 MG/ML 1 ML SYRINGE IVP STA (23:02)
[2017-05-07] MEDS ORDERED: ACET/COD 300 MG/30 MG STARTER PACK 6 TAB BTL PO STA (23:15)
[2017-05-07 23:40] VITALS: BP 126/73; PULSE 85; RESP 20; TEMP 98.1
== END 2017-05-07 23:40 | disposition home or self-care (01) ==
LOC: EC 19:50
DX: N10 Acute pyelonephritis (principal); N28.1 Cyst of kidney, acquired; E78.5 Hyperlipidemia, unspecified; E07.9 Disorder of thyroid, unspecified; F32.9 Major depressive disorder, single episode, unspecified; Z90.49 Acquired absence of other specified parts of digestive tract; Z91.048 Other nonmedicinal substance allergy status; Z79.899 Other long term (current) drug therapy
CPT/HCPCS: 99284; 96374; 96375 ×2; 96361; 36415; 80053; 82150; 83690; 85025; 81001; 74000; 74176; J2405; J0696; J1170

== ENCOUNTER → 2017-11-24 | Outpatient (CLI) | payer BC ==
--- NOTE | 2017-11-24 19:03 | CT ---
EXAMINATION TYPE: CT abdomen pelvis w con DATE OF EXAM: 11/24/2017 COMPARISON: 05/07/2017 HISTORY: Lower abd and pelvic pain x4 weeks CT DLP: 1111 mGycm Automated exposure control for dose reduction was used. TECHNIQUE: Helical acquisition of images was performed from the lung bases through the pelvis. CONTRAST: Performed with Oral Contrast and with IV Contrast, patient injected with 100ml mL of Omnipaque 300. FINDINGS: Lung bases are clear. There is no pleural effusion. Heart size is normal. Liver and spleen appear normal. Bile ducts are not dilated. There is no evidence of a pancreatic mass . There are clips from cholecystectomy. There is no adrenal mass. There is a 6 cm cortical cyst on th e lateral left kidney. There is no hydronephrosis. There is a 1 cm cyst in the inferior right lobe of the liver. I see no intestinal wall thickening. There are no dilated loops. Bladder distends smoothly. Uterus is anteverted. I see no bony destructive process. Appendix is not seen. There is no sign of appendiciti s. There is no evidence of a pelvic mass. IMPRESSION: LARGE LEFT RENAL CORTICAL CYST. NO SIGN OF ACUTE ABDOMEN AND PELVIS. NO CHANGE.
== END | disposition home or self-care (01) ==
LOC: RADCTMAIN 18:31
PROVIDERS: ATTEND Family Medicine
DX: N28.1 Cyst of kidney, acquired (principal)
CPT/HCPCS: 74177; Q9967

== ENCOUNTER 2017-12-29 11:19 | Day surgery (SDC) | payer BC ==
[2017-12-27 11:59] VITALS: BMI 24.3
[~2017-12-29 11:19] MED LIST: LACTATED RINGERS 1,000 ML IV SCH
[2017-12-29] MEDS ORDERED: LIDOCAINE 1% 20 ML VIAL (10MG/ML) FOR IV START INTRADERMA ONE (11:35)
[2017-12-29 11:40] VITALS: TEMP 97
[2017-12-29] MEDS ORDERED: PROPOFOL 10 MG/ML 20 ML VIAL IV ONE (12:44)
--- NOTE | 2017-12-29 12:46 | P.GSHP ---
History of Present Illness H&P Date: 12/29/17 Chief Complaint: GI bleed This a 47-year-old female who has had issues with GI bleed. Patient presents today for colonoscopy. Past Medical History Past Medical History: Hyperlipidemia, Thyroid Disorder Additional Past Medical History / Comment(s): hx. ovarian cysts,migraines, Kidney stones, decreased glomular filtration- monitoring History of Any Multi-Drug Resistant Organisms: None Reported Past Surgical History: Appendectomy, Cholecystectomy, Uterine Ablation Additional Past Surgical History / Comment(s): 2013 ablation Past Anesthesia/Blood Transfusion Reactions: No Reported Reaction Past Psychological History: Anxiety, Depression Additional Psychological History / Comment(s): Dr Ese Krause manages depression Smoking Status: Never smoker Past Alcohol Use History: None Reported Past Drug Use History: None Reported - Past Family History Mother Family Medical History: CVA/TIA, Diabetes Mellitus Additional Family Medical History / Comment(s): parkinsons Medications and Allergies Home Medications Medication Instructions Recorded Confirmed Type Levothyroxine Sodium [Synthroid] 88 mcg PO DAILY 03/13/17 12/27/17 History Montelukast [Singulair] 10 mg PO DAILY 03/13/17 12/27/17 History buPROPion HCL [Wellbutrin XL] 150 mg PO DAILY 03/13/17 12/27/17 History Atorvastatin [Lipitor] 40 mg PO DAILY 12/13/17 12/27/17 History Cyclobenzaprine [Flexeril] 5 mg PO BID PRN 12/13/17 12/27/17 History Oxybutynin Chloride [Ditropan XL] 5 mg PO DAILY 12/13/17 12/27/17 History Topiramate [Topamax] 50 mg PO DAILY 12/13/17 12/27/17 History Allergies Allergy/AdvReac Type Severity Reaction Status Date / Time SKIN ON PEACHES AdvReac Rash/Hives Uncoded 12/27/17 11:56 Surgical - Exam Vital Signs Temp Pulse Resp BP Pulse Ox 97 F L 90 18 116/73 98 12/29/17 11:38 12/29/17 11:38 12/29/17 11:38 12/29/17 11:38 12/29/17 11:38 - General well developed, no distress - Eyes PERRL - ENT normal pinna - Neck no masses - Respiratory normal expansion - Cardiovascular Rhythm: regular - Abdomen Abdomen: soft, non tender Assessment and Plan Assessment: GI bleed. We'll perform colonoscopy.
--- NOTE | 2017-12-29 13:10 | P.OP ---
Date of Procedure: 12/29/17 Preoperative Diagnosis: GI bleed Postoperative Diagnosis: Hemorrhoids Procedure(s) Performed: Colonoscopy Anesthesia: MAC Surgeon: Michael Bullock Pathology: none sent Condition: stable Disposition: PACU Description of Procedure: Patient's placed on the endoscopy table lateral position. She received IV sedation. Digital rectal exam was performed there were external and internal hemorrhage. The flexible colonoscope was then placed patient anus passed throughout the entire colon. The ileocecal valve was visually's. The cecum, ascending and transverse colon appeared normal. The descending and sigmoid colon was normal. Scope was then brought back the rectum and this appeared normal. Scope was then withdrawn from patient.
[2017-12-29 13:30] VITALS: RESP 16
[2017-12-29 13:59] VITALS: BP 119/83; PULSE 67
== END 2017-12-29 14:11 | disposition home or self-care (01) ==
LOC: ORWHC2ENDO 11:19
PROVIDERS: ATTEND Surgery
DX: K64.4 Residual hemorrhoidal skin tags (principal); K64.8 Other hemorrhoids; E78.5 Hyperlipidemia, unspecified; E07.9 Disorder of thyroid, unspecified; Z79.899 Other long term (current) drug therapy; Z91.018 Allergy to other foods
CPT/HCPCS: 81025; 45378; J2704

== ENCOUNTER → 2018-10-01 | Outpatient (CLI) | payer BC ==
--- NOTE | 2018-10-02 17:13 | US ---
EXAMINATION TYPE: US transvaginal DATE OF EXAM: 10/01/2018 COMPARISON: CLINICAL HISTORY: R10.2 PELVIC PAIN. Sharp shooting pain in vaginal region, ablation jul 2013 TECHNIQUE: Transvaginal (TV). Date of LMP: Jul 2013, EXAM MEASUREMENTS: Uterus: 7.7 x 5.9 x 4.5 cm Endometrial Stripe: 0.4 cm Right Ovary: 2.7 x 1.9 x 1.8 cm Left Ovary: 1.9 x 1.2 x 1.1 cm 1. Uterus: Anteverted Appears heterogenous. 2. Endometrium: Appears heterogenous 3. Right Ovary: follicle seen 4. Left Ovary: wnl 5. Bilateral Adnexa: wnl 6. Posterior cul-de-sac: no free fluid Cervix- nabothian cysts IMPRESSION: 1. No suspicious acute changes pelvic ultrasound
--- NOTE | 2018-10-02 17:15 | US ---
EXAMINATION TYPE: US kidneys/renal and bladder DATE OF EXAM: 10/01/2018 COMPARISON: CLINICAL HISTORY: R10.2 PELVIC PAIN. Hx renal stones, right side tenderness, pain in vaginal region. EXAM MEASUREMENTS: Right Kidney: 9.3 x 5.0 x 4.2 cm Left Kidney: 9.6 x 4.4 x 5.2 cm Right Kidney: wnl Left Kidney: mid cortical cystic lesion - 5.6 x 5.7 x 6.1 cm Bladder: Echogenic nonshadowing focus seen at ureter, twinkling artifact Bilateral Jets seen IMPRESSION: 1. Echogenic focus within the inferior dependent urinary bladder. Nonshadowing calcification may be p resent. This may be at the ureteral insertion.. 2. Left mid renal cyst
== END | disposition home or self-care (01) ==
LOC: RADUSWWP 15:55
PROVIDERS: ATTEND Family Medicine
DX: N28.1 Cyst of kidney, acquired (principal); R10.2 Pelvic and perineal pain
CPT/HCPCS: 76770; 76830

== ENCOUNTER → 2019-07-29 | Outpatient (CLI) | payer OTHER ==
--- NOTE | 2019-07-30 13:42 | MM ---
Reason for exam: screening (asymptomatic). Last mammogram was performed 2 years ago. Physical Findings: A clinical breast exam by your physician is recommended on an annual basis and results should be correlated with mammographic findings. MG Screening Mammo w CAD Bilateral CC and MLO view(s) were taken. Prior study comparison: July 28, 2017, bilateral MG screening mammo w CAD. August 14, 2015, bilateral MG screening mammo w CAD. There are scattered fibroglandular densities. No significant changes when compared with prior studies. ASSESSMENT: Negative, BI-RAD 1 RECOMMENDATION: Routine screening mammogram of both breasts in 1 year.
== END | disposition home or self-care (01) ==
LOC: RADMAMWWP 16:33
DX: Z12.31 Encounter for screening mammogram for malignant neoplasm of breast (principal)
CPT/HCPCS: 77067

== ENCOUNTER → 2021-12-13 | Outpatient (CLI) | payer OTHER ==
--- NOTE | 2021-12-14 11:11 | MM ---
Reason for exam: screening (asymptomatic). Last mammogram was performed 2 years and 4 months ago. History: Patient is postmenopausal. Physical Findings: A clinical breast exam by your physician is recommended on an annual basis and results should be correlated with mammographic findings. MG Screening Mammo w CAD Bilateral CC and MLO view(s) were taken. Prior study comparison: July 29, 2019, bilateral MG screening mammo w CAD. July 28, 2017, bilateral MG screening mammo w CAD. There are scattered fibroglandular densities. Finding: There is an intermediate concern, suspicious high density, irregular mass located 4 cm from the nipple in the upper outer quadrant of the right breast. New finding since July 29, 2019 and July 28, 2017. ASSESSMENT: Incomplete: need additional imaging evaluation, BI-RAD 0 RECOMMENDATION: Ultrasound of the right breast. [facility] will attempt to contact patient to return for ultrasound.
== END | disposition home or self-care (01) ==
LOC: RADMAMWWP 15:01
DX: Z12.31 Encounter for screening mammogram for malignant neoplasm of breast (principal); Z78.0 Asymptomatic menopausal state
CPT/HCPCS: 77067

== ENCOUNTER → 2023-08-04 | Outpatient (CLI) | payer OTHER, BC ==
[2023-08-04 16:34] LABS: Chol/HDL Ratio 3.36 Ratio; Estradiol 41.5 pg/mL; LDL Cholesterol,Calculated 128.8 mg/dL (0.0-131.0); T4, Free (Free Thyroxine) 1.32 ng/dL (0.80-1.80)
[2023-08-04 16:39] LABS: Follicle Stimulating Hormone 20.9 mIU/mL; Luteinizing Hormone 14.6 mIU/mL
== END | disposition home or self-care (01) ==
LOC: LABWHC1 11:17
PROVIDERS: ATTEND Family Medicine
DX: N92.6 Irregular menstruation, unspecified (principal); N95.1 Menopausal and female climacteric states
CPT/HCPCS: 36415; 80061; 82670; 83001; 83002; 84144; 84146; 84403; 84439; 84443; 84481

== ENCOUNTER → 2023-10-04 | Outpatient (CLI) | payer OTHER, BC ==
--- NOTE | 2023-10-05 11:38 | MM ---
Reason for Exam: Screening (asymptomatic). Last mammogram was performed 1 year(s) and 9 month(s) ago. Patient History: Menarche at age 12. First Full-Term at age 24. Postmenopausal. Patient has history of breast feeding. Risk Values: Amber 5 year model risk: 1.3%. NCI Lifetime model risk: 9.3%. Prior Study Comparison: 07/29/2019 Bilateral Screening Mammogram, LOCATED [facility]IN [facility]. 12/13/2021 Bilateral Screening Mammogram, LOCATED [facility]IN [facility]. 12/20/2021 Right Diagnostic Mammogram, LOCATED [facility]. Tissue Density: The breast tissue is heterogeneously dense. This may lower the sensitivity of mammography. Findings: Analyzed By CAD. There is no suspicious group of microcalcifications or new suspicious mass in either breast. Overall Assessment: Negative, BI-RAD 1 Management: Screening Mammogram of both breasts in 1 year. . Patient should continue monthly self-breast exams. A clinical breast exam by your physician is recommended on an annual basis. This exam should not preclude additional follow-up of suspicious palpable abnormalities. Note on Amber scores and lifetime risk: 1. A Amber score greater than 3% is considered moderate risk. If this is the case, consider specialist referral to assess eligibility for a risk reducing agent. 2. If overall lifetime risk for the development of breast cancer is 20% or higher, the patient may qualify for future screening with alternating mammogram and breast MRI. Electronically signed and approved by: Zenon Lemus M.D. Radiologis
== END | disposition home or self-care (01) ==
LOC: RADMAMWWP 16:41
DX: Z12.31 Encounter for screening mammogram for malignant neoplasm of breast (principal); Z78.0 Asymptomatic menopausal state
CPT/HCPCS: 77067

== ENCOUNTER → 2024-10-08 | Outpatient (CLI) | payer OTHER ==
--- NOTE | 2024-10-09 09:22 | MM ---
Reason for Exam: Screening (asymptomatic). Last mammogram was performed 1 year(s) and 1 month(s) ago. Patient History: Menarche at age 12. First Full-Term at age 24. Postmenopausal. Patient has history of breast feeding. Risk Values: Amber 5 year model risk: 1.3%. NCI Lifetime model risk: 9.1%. Prior Study Comparison: 12/13/2021 Bilateral Screening Mammogram, [facility]. 12/20/2021 Right Diagnostic Mammogram, [facility]. 10/04/2023 Bilateral MG screening mammo w CAD, [facility]. Tissue Density: The breasts are almost entirely fatty. Findings: Analyzed By CAD. Right breast: There is no suspicious group of microcalcifications or new suspicious mass. Left breast: There is no suspicious group of microcalcifications or new suspicious mass. Overall Assessment: Negative, BI-RAD 1 Management: Screening Mammogram of both breasts in [address] [facility] will attempt to contact patient to return for supplemental views and ultrasound if indicated. Patient should continue monthly self-breast exams. A clinical breast exam by your physician is recommended on an annual basis. This exam should not preclude additional follow-up of suspicious palpable abnormalities. Note on Amber scores and lifetime risk: 1. A Amber score greater than 3% is considered moderate risk. If this is the case, consider specialist referral to assess eligibility for a risk reducing agent. 2. If overall lifetime risk for the development of breast cancer is 20% or higher, the patient may qualify for future screening with alternating mammogram and breast MRI. [facility], , 10/09/2024 9:19 AM. Electronically signed and approved by: Dex Nguyễn DO
== END | disposition home or self-care (01) ==
LOC: RADMAMWWP 08:11
PROVIDERS: ATTEND Family Medicine
DX: Z12.31 Encounter for screening mammogram for malignant neoplasm of breast (principal); Z78.0 Asymptomatic menopausal state; R92.313 Mammographic fatty tissue density, bilateral breasts
CPT/HCPCS: 77067